=== PATIENT | female | born 1965 ===

== ENCOUNTER 2018-03-14 18:58 | Emergency (ER) | payer OTHER ==
[2018-03-14 19:00] VITALS: BMI 25.4
[2018-03-14] MEDS ORDERED: Sodium Chloride 0.9% 1,000 ML IV ONE (19:33)
[2018-03-14] MEDS ORDERED: Sodium Chloride 0.9% 1,000 ML ONE (19:45)
[2018-03-14 20:07] LABS: BASO % 0.6 % (0.0-2.0); EOS # 0.2 K/uL (0.0-0.7); EOS % 2.5 % (0.0-4.0); HEMOGLOBIN 12.4 g/dL (11.0-16.0); LYMPH # 2.3 K/uL (1.0-4.3); LYMPH % 33.2 % (20.0-40.0); MEAN CELL VOLUME 87.2 fL (81.0-99.0); MEAN CORPUSCULAR HEMOGLOBIN 29.6 pg (27.0-31.0); MEAN CORPUSCULAR HGB CONC 33.9 g/dL (33.0-37.0); MEAN PLATELET VOLUME 8.7 fL (7.2-11.7); MONO # 0.7 K/uL (0.0-0.8); MONO % 10.2 % (0.0-10.0); NEUT # 3.7 K/uL (1.8-7.0); NEUT % 53.5 % (50.0-75.0); NRBC % 0.1 % (0.0-2.0); RBC 4.2 Mil/uL (3.80-5.20)
[2018-03-14 20:11] LABS: URINE BILIRUBIN NEGATIVE (NEGATIVE); URINE BLOOD NEGATIVE (NEGATIVE); URINE CLARITY Clear (Clear); URINE COLOR Colorless (YELLOW); URINE GLUCOSE (UA) NORMAL (Normal); URINE LEUKOCYTE ESTERASE NEG Leu/uL (Negative); URINE PROTEIN NEGATIVE (NEGATIVE); URINE UROBILINOGEN NORMAL mg/dL (0.2-1.0)
[2018-03-14 20:15] LABS: HCG,QUALITATIVE URINE NEGATIVE (NEGATIVE); INR 1.1; PROTHROMBIN TIME 11.8 SECONDS (9.7-12.2)
[2018-03-14 20:23] LABS: ALB/GLOB RATIO 1.1 (1.0-2.1); ALBUMIN 4.1 g/dL (3.5-5.0); ALT/SGPT 54 U/L (9-52); AST/SGOT 40 U/L (14-36); BLOOD UREA NITROGEN 13 mg/dL (7-17); CALCIUM 9.7 mg/dl (8.6-10.4); GFR NON-AFRICAN AMERICAN > 60; LIPASE 71 U/L (23-300)
[2018-03-14 20:29] LABS: B-TYPE NATRIURETIC PEPTIDE 176 pg/mL (0-900)
[2018-03-14 21:14] VITALS: O2SAT 98
[2018-03-14] MEDS ORDERED: Iodixanol 320 MG/ML 100 ML BOTTLE IV ONE (21:19)
[2018-03-14 22:12] VITALS: BP 127/72; PULSE 64; RESP 14; TEMP 98.3
--- NOTE | 2018-03-14 22:41 | C.PDOC ---
History Of Present Illness 52 year old female is sent to the ED by Dr. De Dios for evaluation of midly elevated LFTs, AST and ALT in the 60s from a routine lab. Patient was told to follow up with clinic but presented today c/o epigastric discomfort occasionally and is concerned abiut the abnormal labs. Patient denies fever, chills, nausea, vomit, diarrhea, CP, SOB, weakness, numbness. <Raheel Salgado - Last Filed: 03/14/18 23:06> History Per: Patient History/Exam Limitations: no limitations Onset/Duration Of Symptoms: Hrs Current Symptoms Are (Timing): Still Present Location Of Pain/Discomfort: Epigastric Radiation Of Pain To:: None Quality Of Discomfort: "Pain" Associated Symptoms: denies: Nausea, Vomiting, Diarrhea Alleviating Factors: None Recent travel outside of the [place]: No Additional History Per: Patient Abnormal Vaginal Bleeding: No <Raheel Salgado - Last Filed: 03/14/18 23:06> <Tabitha Mariano - Last Filed: 03/15/18 13:03> Time Seen by Provider: 03/14/18 19:29 Chief Complaint (Nursing): Abdominal Pain Past Medical History Reviewed: Historical Data, Nursing Documentation, Vital Signs Vital Signs: Last Vital Signs Temp 98.3 F 03/14/18 22:10 Pulse 64 03/14/18 22:10 Resp 14 03/14/18 22:10 BP 127/72 03/14/18 22:10 Pulse Ox 98 03/14/18 22:10 - Medical History PMH: No Chronic Diseases Surgical History: No Surg Hx Family History: States: Unknown Family Hx - Social History Hx Alcohol Use: No Hx Substance Use: No - Immunization History Hx Tetanus Toxoid Vaccination: No Hx Influenza Vaccination: No Hx Pneumococcal Vaccination: No <Raheel Salgado - Last Filed: 03/14/18 23:06> Vital Signs: Last Vital Signs Temp 98.3 F 03/14/18 22:10 Pulse 64 03/14/18 22:10 Resp 14 03/14/18 22:10 BP 127/72 03/14/18 22:10 Pulse Ox 98 03/14/18 23:06 <Tabitha Mariano - Last Filed: 03/15/18 13:03> Review Of Systems Constitutional: Negative for: Fever, Chills Cardiovascular: Negative for: Chest Pain Respiratory: Negative for: Cough, Shortness of Breath Gastrointestinal: Positive for: Abdominal Pain. Negative for: Nausea, Vomiting, Diarrhea Genitourinary: Negative for: Dysuria, Hematuria Neurological: Negative for: Weakness, Numbness <Raheel Salgado - Last Filed: 03/14/18 23:06> Physical Exam - Physical Exam Appears: Non-toxic, No Acute Distress, Other ( female) Skin: Normal Color, Warm, Dry Head: Atraumatic, Normacephalic Eye(s): bilateral: Normal Inspection Oral Mucosa: Moist Neck: Normal ROM, Supple Chest: Symmetrical Cardiovascular: Rhythm Regular Respiratory: Normal Breath Sounds, No Rales, No Rhonchi, No Wheezing Gastrointestinal/Abdominal: Soft, Tenderness (epigastric), No Guarding, No Rebound, Other (dull to percussion) Extremity: Normal ROM, No Tenderness, No Swelling Neurological/Psych: Oriented x3, Normal Speech, Normal Cognition Gait: Steady <Raheel Salgado - Last Filed: 03/14/18 23:06> ED Course And Treatment - Laboratory Results Result Diagrams: 03/14/18 20:01 03/14/18 20:01 Lab Interpretation: Normal (AST40/ALT 54, alk phos 209. slight elevations of ? sig) O2 Sat by Pulse Oximetry: 98 (ON RA) Pulse Ox Interpretation: Normal - Radiology CXR: Interpreted by Ia CXR Interpretation: Yes: No Acute Disease - Other Rad abd x 2 X-Ray: Interpreted by Ia (+FOS) - CT Scan/US CT abd/pelvis Other Rad Studies (CT/US): Read By Radiologist, Radiology Report Reviewed CT/US Interpretation: IMPRESSION: 1. Thick walled fluid filled duodenum and loops of jejunum compatible with enteritis. Infectious and inflammatory getachew ologies are considered. 2. Status post complete hysterectomy. . Electronically signed on Mar 14, 2018 10:51:15 PM EDT by: Sung Guzman M.D., BETHANY Certified By [employer] & [facility]. Fellowship Trained MRI and CT Specialist. <Raheel Salgado Last Filed: 03/14/18 23:06> - Laboratory Results Result Diagrams: 03/14/18 20:01 03/14/18 20:01 <Tabitha Mariano - Last Filed: 03/15/18 13:03> Medical Decision Making Medical Decision Making: Plan: * CT abd/pelvis * Labs * Obstructive series X-Ray * IV fluids * UA constipation mild elev LFT"s of ? sig s/s NOT c/w biliary colic outpatient f/u consider RUQ US PRN <Raheel Salgado - Last Filed: 03/14/18 23:06> Disposition Doctor Will See Patient In The: Office Counseled Patient/Family Regarding: Studies Performed, Diagnosis - Disposition Disposition Time: 22:59 <Raheel Salgado - Last Filed: 03/14/18 23:06> <Tabitha Mariano - Last Filed: 03/15/18 13:03> - Disposition Referrals: Mihir De Dios MD [Staff Provider] - Disposition: HOME/ ROUTINE Condition: GOOD Additional Instructions: ros un purgante ahora y re-evalua rolle molestia del abdomen despues de evacuar 2- 3 veces Dieta mas saludable Purgantes de vez en cuando, tammy necessario. sigue con Dr. De Dios Instructions: Constipation, Adult (DC), Colic (DC) Forms: [employer] (Pashto) Print Language: GREENLANDIC - Clinical Impression Clinical Impression: Abnormal LFTs (liver function tests), Colicky abdominal pain - Scribe Statement The provider has reviewed the documentation as recorded by the Scribe Juan J Perkins All medical record entries made by the Scribe were at my direction and personally dictated by me. I have reviewed the chart and agree that the record accurately reflects my personal performance of the history, physical exam, medical decision making, and the department course for this patient. I have also personally directed, reviewed, and agree with the discharge instructions and disposition. <Raheel Salgado - Last Filed: 03/14/18 23:06> Addendum Addendum: 03/15/18 13:00 XR of chest and abdomen with questionable small nodular density right upper lung field located between the right 2nd and 3rd anterior ribs and rigt posterior 5th and 6th ribs. Patient was informed about necessity of non emergent CT scan of chest. Patient sts she will visit on 03/17/2018. <Tabitha Mariano - Last Filed: 03/15/18 13:03>
--- NOTE | 2018-03-15 09:50 | RAD ---
Date of service: 03/14/2018 PROCEDURE: Radiographs of the chest and abdomen (obstructive series) HISTORY: abd pain COMPARISON: No prior. TECHNIQUE: AP radiograph of the chest, with upright and supine radiographs of the abdomen. FINDINGS: CHEST: Lungs: Questionable small nodular density right upper lung field located between the right 2nd and 3rd anterior ribs and right posterior 5th and 6th ribs. Follow-up nonemergent CT scan of the chest is recommended for further evaluation. Cardiovascular: Normal size heart. No pulmonary vascular congestion. Pleura: No pleural fluid. No pneumothorax. Other findings: None. ABDOMEN AND PELVIS: Bowel: Unremarkable bowel gas pattern. No evidence of mechanical obstruction.. Large amount of stool seen throughout the colon consistent with fecal retention/constipation. The Free air: None. Bones: Unremarkable. Other findings: None. IMPRESSION: Questionable small nodular density right upper lung field located between the right 2nd and 3rd anterior ribs and right posterior 5th and 6th ribs. Follow-up nonemergent CT scan of the chest is recommended for further evaluation Findings consistent with constipation. Note this report was placed in PA review folder for follow up
--- NOTE | 2018-03-16 11:08 | CT ---
Date of service: 03/14/2018 PROCEDURE: CT Abdomen and Pelvis with Oral contrast. HISTORY: Epigastric pain, and mild elevated LFT's COMPARISON: None. TECHNIQUE: Contiguous axial images of the abdomen and pelvis performed following intravenous injection of approximately 100 cc Visipaque 320. Coronal and Sagittal reformats generated. Radiation dose: Total exam DLP = 288.92 mGy-cm. This CT exam was performed using one or more of the following dose reduction techniques: Automated exposure control, adjustment of the mA and/or kV according to patient size, and/or use of iterative reconstruction technique. FINDINGS: LOWER THORAX: There are small adjacent nodular densities in the posterior sulcus the larger and more medially located nodule measuring approximately 7.3 mm and the more lateral nodular density measuring approximately 4 mm. 6.3 mm nodule of present in the right lateral lung base of bordering the pleural surface near the lateral convexity. All these foci could represent postinflammatory sequela, recommend follow-up nonemergent CT scan of the chest recommended for further evaluation to search for additional nodules and exclude the possibility of metastatic disease. 3rd 6.5 mm pleural-based nodule right lateral lung base... Mild passive/dependent type atelectasis both posterior sulci. Heart size within range of normal. No significant pericardial effusion. Small hiatal hernia. LIVER: Liver is enlarged measuring over 20 cm in CC dimension. Mild fatty hepatic infiltration. No obvious hepatic mass collection or calcification. Portal and splenic veins opacified. GALLBLADDER AND BILE DUCTS: Unremarkable. PANCREAS: Unremarkable. No mass. No ductal dilatation. SPLEEN: Unremarkable. No splenomegaly. ADRENALS: Unremarkable. KIDNEYS AND URETERS: Unremarkable. No stone or hydronephrosis. BLADDER: Bladder is physiologically distended. No evidence of intraluminal urinary bladder calculi. REPRODUCTIVE: Hysterectomy. APPENDIX: Normal-appearing appendix BOWEL: Evaluation of the bowel is somewhat limited due to the lack of oral contrast material. Stomach is incompletely distended which presumably in part accounts for thick-walled appearance however a gastritis not excluded. There is also mild wall thickening of the duodenum and a few loops of proximal small bowel. Rule out on duodenitis/enteritis. Moderate amount of stool seen throughout the ascending, transverse as well as the distal descending and sigmoid colon consistent with fecal retention/constipation. PERITONEUM: Unremarkable. No fluid collection. No free air. Small fat containing umbilical hernia. LYMPH NODES: Unremarkable. No enlarged lymph nodes. VASCULATURE: Unremarkable. No aortic aneurysm. BONES: Minor multilevel degenerative spondylosis of the lower thoracic and lumbar spine. OTHER FINDINGS: None. IMPRESSION: There are multiple nodular densities both lung bases. Findings may be postinflammatory however recommend follow-up CT scan of the chest for further evaluation and to exclude the possibility of metastatic disease. Hepatomegaly with fatty infiltration. Mild wall thickening of the stomach, duodenum and a few loops of proximal small bowel part of which may be due to incomplete distention however a gastritis/enteritis to be excluded. No evidence of cholelithiasis or appendicitis. Hysterectomy.
== END 2018-03-14 23:08 | disposition home or self-care (01) ==
LOC: C.ER 18:58
DX: R10.84 Generalized abdominal pain (principal); R94.5 Abnormal results of liver function studies
CPT/HCPCS: 74022; 74177; 80053; 81001; 83690; 83880; 84484; 84703; 85025; 85610; 85730; 96360; 99285; J7030; Q9967

== ENCOUNTER 2018-07-30 09:19 | Outpatient (CLI) | payer SELFPAY | END 2018-07-30 09:20 | disposition home or self-care (01) | LOC: C.USIC 09:19 ==

== ENCOUNTER 2018-09-12 08:39 | Outpatient (CLI) | payer OTHER | END 2018-09-12 08:40 | disposition home or self-care (01) | LOC: C.LAB 08:39 | DX: M06.9 Rheumatoid arthritis, unspecified (principal); E11.9 Type 2 diabetes mellitus without complications; N39.0 Urinary tract infection, site not specified ==

== ENCOUNTER 2018-09-19 16:16 | Emergency (ER) | payer OTHER ==
[2018-09-19 16:31] VITALS: BMI 23.8
--- NOTE | 2018-09-19 17:22 | C.PDOC ---
History Of Present Illness 53 y/o F c no PMHx p/w chest pain x 15 hours. Pain is midchest, radiating to back, severe at 3am, began at rest while patient in bed, causing patient to feel as though she could not move. Pain is largely improved, now slight. Denies dyspnea, nausea, vomiting, diaphoresis. Denies smoking. Denies history of HTN, HLD, DM, obesity, family history of [place], or any history of atherosclerotic disease. Time Seen by Provider: 09/19/18 17:05 Chief Complaint (Nursing): Chest Pain Past Medical History Vital Signs: Last Vital Signs Temp 98.8 F 09/19/18 16:21 Pulse 75 09/19/18 16:21 Resp 18 09/19/18 16:21 BP 137/76 09/19/18 16:21 Pulse Ox 98 09/19/18 16:21 Family History: States: Unknown Family Hx - Social History Hx Alcohol Use: No Hx Substance Use: No - Immunization History Hx Tetanus Toxoid Vaccination: No Hx Influenza Vaccination: No Hx Pneumococcal Vaccination: No Review Of Systems Except As Marked, All Systems Reviewed And Found Negative. Constitutional: Negative for: Fever Respiratory: Negative for: Shortness of Breath Physical Exam - Physical Exam Additional Physical Exam Comments: Constitutional: No acute distress. Head: Normocephalic. Atraumatic. Eyes: PERRL. ENT: Moist mucous membranes. Neck: Supple. Cardiovascular: Regular rate. Radial pulse 2+ bilaterally. Chest: Reproducible tenderness. Respiratory: Clear to auscultation bilaterally. GI: Soft. Nontender. Nondistended. Back: No CVA tenderness. Musculoskeletal: No tenderness or swelling of extremities. Skin: No rash. Neurologic: Alert, no focal deficit. ED Course And Treatment - Laboratory Results Result Diagrams: 09/19/18 17:45 09/19/18 17:45 O2 Sat by Pulse Oximetry: 98 Medical Decision Making Medical Decision Making: EKG NSR 74 bpm, no ST/T wave changes. CXR no acute disease. No PTX, pleural effusion, fracture. Labs negative. HEART score of 1. Will discharge, f/u primary care, return to ED for worsening pain, fever, dyspnea, or any other problem. Disposition - Disposition Disposition: HOME/ ROUTINE Disposition Time: 18:20 Condition: GOOD Prescriptions: Ibuprofen [Motrin] 1 tab PO Q6 #30 tab Instructions: Chest Pain That Is Not Caused by the Heart (DC) Forms: [employer] (German) - Clinical Impression Clinical Impression: Chest discomfort
[2018-09-19 17:50] LABS: BASO # 0.1 K/uL (0.0-0.2); BASO % 1.1 % (0.0-2.0); EOS # 0.1 K/uL (0.0-0.7); EOS % 1.8 % (0.0-4.0); LYMPH # 2.5 K/uL (1.0-4.3); MEAN CELL VOLUME 89.3 fL (81.0-99.0); MEAN CORPUSCULAR HEMOGLOBIN 29.5 pg (27.0-31.0); MEAN CORPUSCULAR HGB CONC 33.1 g/dL (33.0-37.0); MEAN PLATELET VOLUME 8.8 fL (7.2-11.7); MONO # 0.5 K/uL (0.0-0.8); MONO % 7.8 % (0.0-10.0); NEUT # 3.4 K/uL (1.8-7.0); NEUT % 51.3 % (50.0-75.0); RBC 4.07 Mil/uL (3.80-5.20); WHITE BLOOD COUNT 6.5 K/uL (4.8-10.8)
[2018-09-19 18:13] LABS: CK-MB 1.51 ng/mL (0.0-3.38)
[2018-09-19 18:17] LABS: ALB/GLOB RATIO 1.1 (1.0-2.1); ALT/SGPT 48 U/L (9-52); AST/SGOT 50 U/L (14-36); BLOOD UREA NITROGEN 13 mg/dL (7-17); CALCIUM 9.5 mg/dl (8.6-10.4); GFR NON-AFRICAN AMERICAN > 60
--- NOTE | 2018-09-19 18:28 | RAD ---
Date of service: 09/19/2018 HISTORY: Congestion. COMPARISON: 10/20/2013. TECHNIQUE: Chest PA and lateral views FINDINGS: LUNGS: No active pulmonary disease. PLEURA: No significant pleural effusion identified. No pneumothorax apparent. CARDIOVASCULAR: No aortic atherosclerotic calcification present. No radiographic findings to suggest acute or significant cardiovascular disease. OSSEOUS STRUCTURES: No significant abnormalities. VISUALIZED UPPER ABDOMEN: Normal. OTHER FINDINGS: None. IMPRESSION: No active disease. No significant interval change compared to the prior examination(s).
[2018-09-19 18:31] VITALS: BP 120/72; PULSE 61; RESP 16; TEMP 98.6; O2SAT 99
--- NOTE | 2018-09-23 15:36 | CARD ---
APPROVED REPORT Date of service: 09/19/2018 EKG Measurement Heart [id number] <Conclusion> Normal sinus rhythm Possible Left atrial enlargement Borderline ECG
== END 2018-09-19 18:35 | disposition home or self-care (01) ==
LOC: C.ER 16:16
DX: R07.89 Other chest pain (principal)
CPT/HCPCS: 71046; 80053; 82550; 82553; 84484; 85025; 96374; 99284; J1885